=== PATIENT | female | born 1955 | race Caucasian/White ===

== ENCOUNTER → 2017-04-23 | Outpatient (CLI) | payer OTHER | LOC: FIMAGING 09:17 | PROVIDERS: ATTEND Obstetrics & Gynecology | DX: Z12.31 Encounter for screening mammogram for malignant neoplasm of breast (principal) | CPT/HCPCS: G0202 ==

== ENCOUNTER → 2018-06-09 | Outpatient (CLI) | payer OTHER, MEDICARE | LOC: FIMAGING 08:04 | PROVIDERS: ATTEND Internal Medicine | DX: Z12.31 Encounter for screening mammogram for malignant neoplasm of breast (principal); Z13.820 Encounter for screening for osteoporosis; M85.89 Other specified disorders of bone density and structure, multiple sites ==

== ENCOUNTER 2018-09-08 05:50 | Day surgery (SDC) | payer OTHER, MEDICARE ==
--- NOTE | 2018-09-07 23:03 | GHP ---
Patient slated for surgery on September 08, 2018 on the gynecology service. HISTORY UPON ADMISSION: The patient is a 63-year-old G0 white female, who presents for evaluation of a thickened endometrial lining with postmenopausal bleeding that happened in June 2018. The patient has been menopausal for greater than 10 years and had an episode that began on July 18 and lasted several days of moderate vaginal bleeding. It spontaneously resolved. The patient was evaluated with an ultrasound, which revealed an endometrial thickness in the fundal area of 1 cm with an area 1.9 x 1.8 cm that was consistent with a possible large polyp. The entire uterine size was 7 x 7 x 7 cm, and there is what appears to be a large submucosal fibroid, 5-6 cm in size, with calcifications throughout. Bilaterally, the ovaries appeared normal. The patient was evaluated with an endometrial biopsy that showed predominantly blood with areas of benign appearing endometrial glands and stroma. Due to the recent episode of bleeding, and the appearance of a thickened endometrium, the patient wants to pursue definitive management with a hysteroscopy and removal of the thickness or possible polyp in fundal portion. Risks and benefits of the procedure were discussed with the patient, and the consent form signed. PAST MEDICAL HISTORY: The patient with a history of Beatrice's, however, has not needed thyroid medication in years. History of fibroids with some evidence of decreased size over time. Distant history of infertility. PAST SURGICAL HISTORY: Negative. PAST OBSTETRIC HISTORY: Negative. PAST GYNECOLOGIC HISTORY: Always normal Pap smears. The patient with a new partner since April 2018. No history of sexually transmitted infections. ALLERGIES: Patient has no known drug allergies. CURRENT MEDICATIONS: Multivitamin, vitamin D, fish oil, estradiol vaginal cream using 1 g twice a week. SOCIAL HISTORY: The patient is single, but a regular supportive partner since April. The patient is a nonsmoker. No illicit drug use. A couple cups of alcohol per week. One cup of coffee a day. Regular cardiovascular exercise with walking. REVIEW OF SYSTEMS: History of vaginal bleeding as noted above. No pelvic pain. No abnormal vaginal discharge, odor, or itching. No symptoms of bladder discomfort, urgency, or dysuria. Regular bowel movements with her recent colonoscopy in April. PHYSICAL EXAM: GENERAL: The patient is a well-developed, well-nourished white female in no physical distress. VITAL SIGNS: Blood pressure 112/70, weight 119 pounds. Clinically afebrile. LUNGS: Clear to auscultation bilaterally. CARDIOVASCULAR: Regular rate and rhythm. ABDOMEN: Soft and nontender. Sterile speculum exam performed last in June 2018. PELVIC: Normal external genitalia. The vaginal tissue appears estrogenized but little rugae. Cervix appeared normal. No signs of polyps. A Pap smear was performed. No evidence of abnormal discharge, odor, or any sign of bleeding. Bimanual exam revealed a small nontender uterus. No adnexal masses. EXTREMITIES: Nontender and no edema. ASSESSMENT: Thickened endometrium in the fundus with recent postmenopausal bleeding. We will try to remove the endometrial thickness in the fundus. However, the patient is aware that it might be difficult to manuever around the 5-6 cm submucosal fibroid. We will proceed with hysteroscopy and removal of endometrial thickness. The patient will receive preoperative antibiotics. /[id number]/MODL MTDD
[2018-09-08] MEDS ORDERED: LIDOCAINE 1% 2 ML INJ ID PRN (06:08)
[2018-09-08] MEDS ORDERED: ceFAZolin 2 GM/DEXTROSE 100 ML IV ONE (06:08)
[2018-09-08] MEDS ORDERED: LR 1,000 ML IV ONE (06:08)
[2018-09-08] MEDS ORDERED: SILVER NITRATE APPLICATOR 1 APPL TP ONE (06:48)
[2018-09-08] MEDS ORDERED: MIDAZOLAM 2 MG/2 ML VIAL IVP ONE (07:06)
--- NOTE | 2018-09-08 07:07 | PDANEPAE ---
ANE History of Present Illness abnormal uterine bleeding, here for hysteroscopy with possible bx ANE Past Medical History - Cardiovascular History Hx Hypertension: No Hx Arrhythmias: No Hx Chest Pain: No Hx Coronary Artery / Peripheral Vascular Disease: No Hx CHF / Valvular Disease: No Hx Palpitations: No - Pulmonary History Hx COPD: No Hx Asthma/Reactive Airway Disease: No Hx Recent Upper Respiratory Infection: No Hx Oxygen in Use at Home: No Hx Sleep Apnea: No Sleep Apnea Screening Result - Last Documented: Negative - Neurologic History Hx Cerebrovascular Accident: No Hx Seizures: No Hx Dementia: No - Endocrine History Hx Diabetes: No - Renal History Hx Renal Disorders: No - Liver History Hx Hepatic Disorders: No - Neurological & Psychiatric Hx Hx Neurological and Psychiatric Disorders: No - Cancer History Hx Cancer: No - Congenital Disorder History Hx Congenital Disorders: No - GI History Hx Gastrointestinal Disorders: No - Other Health History Other Health History: NEG - Chronic Pain History Chronic Pain: No - Surgical History Prior Surgeries: COLONOSCOPY X2. TONSILLECTOMY ANE Review of Systems Review of Systems: - Exercise capacity METS (RN): 5 METS ANE Patient History - Allergies Allergies/Adverse Reactions: No Known Allergies Allergy (Unverified 08/17/18 10:57) - Home Medications Home Medications: Herbals/Supplements -Info Only 08/17/18 [Last Taken Unknown] - NPO status NPO Since - Liquids (Date): 09/07/18 NPO Since - Liquids (Time): 20:00 NPO Since - Solids (Date): 09/07/18 NPO Since - Solids (Time): 20:00 - Smoking Hx Smoking Status: Never smoked - Family Anes Hx Family Hx Anesthesia Complications: NEG ANE Labs/Vital Signs - Vital Signs Blood Pressure: 120/66 Heart Rate: 59 Respiratory Rate: 16 O2 Sat (%): 94 Height: 167.64 cm Weight: 53.07 kg ANE Physical Exam - Airway Neck exam: FROM Mallampati Score: Class 1 Mouth exam: normal dental/mouth exam - Pulmonary Pulmonary: no respiratory distress - Cardiovascular Cardiovascular: regular rate and rhythym - ASA Status ASA Status: I ANE Anesthesia Plan Anesthesia Plan: GA w LMA
[2018-09-08] MEDS ORDERED: LIDOCAINE 2% 100 MG/5 ML SYR ONE (07:17)
[2018-09-08] MEDS ORDERED: ONDANSETRON 4 MG/2 ML VIAL ONE (07:17)
[2018-09-08] MEDS ORDERED: DEXAMETHASONE 4 MG/ML VIAL ONE (07:17)
[2018-09-08] MEDS ORDERED: fentaNYL 100 MCG/2 ML INJ ONE (07:18)
[2018-09-08] MEDS ORDERED: PROPOFOL 200 MG/20 ML VIAL ONE (07:18)
--- NOTE | 2018-09-08 07:20 | PDHPUP ---
History & Physical Update H&P update statement: This history and physical update is based on an assessment of the patient which was completed after admission or registration (within 24 hours), but prior to the surgery/procedure. H&P update: no change in patient's condition since H&P completed
[2018-09-08 07:38] LABS: PLATELET COUNT 200 10^3/uL (150-400)
--- NOTE | 2018-09-08 08:28 | POSTOPPROG ---
Post Op Note Date of Operation: 09/08/18 Surgeon: Marti Horton Anesthesiologist: Jovana Garcia MD Anesthesia: LMA Pre-op Diagnosis: postmenopausal bleeding, thickened lining Post-op Diagnosis: same, endometrial polyp Indication: episode of postmenopausal bleeding in June, EMT 1.9x 1.8cm Procedure: Hysteroscopic polypectomy Findings: ill-defined tubal ostea, vesicular polypoid tissue, fundus, no sign of fibr Inf/Abcess present in the surg proc area at time of surgery?: No Depth: Organ Space EBL: Minimal Total fluids administered: 600 Complications: none, fluid deficit 1050 ml, no evidence of perforation and good distention throughout, dilated easily to 6.5 Tania Specimen(s): endometrial tissue
[2018-09-08] MEDS ORDERED: MEPERIDINE 25 MG/0.5 ML AMP IVP PRN (08:32)
[2018-09-08] MEDS ORDERED: NALOXONE HCL 0.4 MG/ML INJ IVP PRN (08:32)
[2018-09-08] MEDS ORDERED: HYDROmorphONE/DILAUDID 2 MG/ML INJ IVP PRN (08:32)
[2018-09-08] MEDS ORDERED: HYDROCODONE/APAP 5/325 TAB PO PRN (08:32)
[2018-09-08] MEDS ORDERED: DIAZEPAM 5 MG/ML 1 ML SYR IVP PRN (08:32)
[2018-09-08] MEDS ORDERED: PROMETHAZINE HCL 25 MG/ML INJ IVP PRN (08:32)
[2018-09-08] MEDS ORDERED: fentaNYL 100 MCG/2 ML INJ IVP PRN (08:32)
[2018-09-08 09:11] VITALS: BP 108/77
--- NOTE | 2018-09-08 10:14 | POSTANESTH ---
Post Anesthetic Evaluation Cardiovascular Status: Normal, Stable Respiratory Status: Normal, Stable Level of Consciousness/Mental Status: Can Participate in Eval Pain Control: Adequate, Prn Tx Ordered Nausea/Vomiting Control: Adequate, Prn Tx Ordered Complications Possibly Related to Anesthesia: None Noted
== END 2018-09-08 09:23 | disposition home or self-care (01) ==
LOC: FSGY 05:50
PROVIDERS: ATTEND Obstetrics & Gynecology
PROC: 0UDB8ZX Extraction of Endometrium, Via Natural or Artificial Opening Endoscopic, Diagnostic (ICD-10-PCS; principal; 2018-09-08 07:15)
DX: N84.0 Polyp of corpus uteri (principal); D25.0 Submucous leiomyoma of uterus; E06.3 Autoimmune thyroiditis
CPT/HCPCS: 58558; C1782; J0690; J1100; J2001; J2250; J2405; J2704; J3010